=== PATIENT | female | born 1960 | race Hispanic/Latino ===

== ENCOUNTER → 2018-03-31 | Outpatient (CLI) | payer BC ==
[~2018-03-31] MED LIST: GADOBENATE DIMEGLUMINE 20 ML IV ONE
== END | disposition home or self-care (01) ==
LOC: RAH 12:48
PROVIDERS: ATTEND Obstetrics & Gynecology
DX: N64.52 Nipple discharge (principal)
CPT/HCPCS: A9577; C8908